=== PATIENT | female | born 1970 | race African-American/Black ===

== ENCOUNTER 2022-02-05 10:29 | Day surgery (SDC) | payer OTHER ==
[2022-02-03 14:32] VITALS: BMI 28.1
[2022-02-05 12:59] VITALS: BP 120/78; PULSE 80; TEMP 98
== END 2022-02-05 13:13 | disposition home or self-care (01) ==
LOC: FASU-ENDO 10:29
PROVIDERS: ATTEND Internal Medicine Gastroenterology
PROC: 0DJD8ZZ Inspection of Lower Intestinal Tract, Via Natural or Artificial Opening Endoscopic (ICD-10-PCS; principal; 2022-02-05 12:15)
DX: Z12.11 Encounter for screening for malignant neoplasm of colon (principal); K64.1 Second degree hemorrhoids